=== PATIENT | male | born 1965 | race African-American/Black ===

== ENCOUNTER 2021-06-11 03:40 | Emergency (ER) | payer MEDICAID ==
[~2021-06-11] VITALS: Ht 172.7 cm; Wt 90.0 kg
[2021-06-11 04:43] LABS: BASOPHILS % 0.4 % (0.0-2.0); EOSINOPHILS % 0.3 % (0.0-5.0); HEMATOCRIT. 42.9 % (42.0-52.0); HEMOGLOBIN. 13.7 g/dL (14.0-18.0); LYMPHOCYTES % 13.3 % (20.0-50.0); MEAN CORPUSCULAR HEMOGLOBIN 26.4 pg (28.0-32.0); MEAN CORPUSCULAR VOLUME 82.8 fL (80.0-94.0); MEAN PLATELET VOLUME 8.5 fl (7.4-10.4); MONOCYTES % 7.7 % (2.0-8.0); NEUTROPHILS % 78.3 % (40.0-76.0); PLATELET 224 x1000/uL (130-400); RED BLOOD CELL COUNT 5.18 mill/uL (4.7-6.1); RED CELL DISTRIBUTION WIDTH 18.8 % (11.6-14.6)
[2021-06-11 04:54] LABS: CHLORIDE 111 mEq/L (98-107)
[2021-06-11 04:55] LABS: CLARITY URINE CLEAR (CLEAR); COLOR URINE YELLOW (YELLOW); KETONES URINE TRACE (NEGATIVE); LEUKOCYTE ESTERASE URINE NEGATIVE (NEGATIVE); NITRITE URINE NEGATIVE (NEGATIVE); OCCULT BLOOD URINE NEGATIVE (NEGATIVE); PROTEIN URINE NEGATIVE (NEGATIVE); SPECIFIC GRAVITY URINE 1.021 (1.005-1.030)
[2021-06-11 04:58] LABS: ETHANOL BLOOD 122 mg/dL
[2021-06-11 05:13] LABS: *AMPHETAMINES SCREEN URINE NEGATIVE (NEGATIVE); *BENZODIAZEPINES SCREEN URINE NEGATIVE (NEGATIVE); CANNABINOID URINE SCREEN NEGATIVE (NEGATIVE); METHADONE URINE SCREEN NEGATIVE (NEGATIVE); OPIATES URINE SCREEN NEGATIVE (NEGATIVE); PHENCYCLIDINE URINE SCREEN NEGATIVE (NEGATIVE)
[2021-06-11 05:14] LABS: *BARBITURATES SCREEN URINE NEGATIVE (NEGATIVE); *COCAINE SCREEN URINE PRESUMTIVE POSITIVE (NEGATIVE)
[2021-06-11 07:00] VITALS: BP 124/71
== END 2021-06-11 07:22 | disposition home or self-care (01) ==
LOC: ER 03:40
DX: F10.129 Alcohol abuse with intoxication, unspecified (principal); Y90.6 Blood alcohol level of 120-199 mg/100 ml; R10.9 Unspecified abdominal pain; F14.10 Cocaine abuse, uncomplicated; I10 Essential (primary) hypertension; I25.2 Old myocardial infarction; Z86.73 Personal history of transient ischemic attack (TIA), and cerebral infarction without residual deficits; Z99.3 Dependence on wheelchair
CPT/HCPCS: 36415; 80053; 80305; 80320; 81003; 85025; 99283; G0480

== ENCOUNTER 2021-06-14 10:47 | Emergency (ER) | payer MEDICAID ==
[~2021-06-14] VITALS: Ht 175.3 cm; Wt 91.0 kg
[2021-06-14] MEDS ORDERED: KETOROLAC 60MG/2ML VIAL IM ONE (11:30)
[2021-06-14 12:29] LABS: BASOPHILS % 1.3 % (0.0-2.0); EOSINOPHILS % 0.5 % (0.0-5.0); HEMOGLOBIN. 13.7 g/dL (14.0-18.0); LYMPHOCYTES % 23.1 % (20.0-50.0); MEAN CORPUSCULAR HEMOGLOBIN 26.8 pg (28.0-32.0); MEAN CORPUSCULAR VOLUME 82.2 fL (80.0-94.0); MEAN PLATELET VOLUME 8.5 fl (7.4-10.4); MONOCYTES % 9.8 % (2.0-8.0); NEUTROPHILS % 65.3 % (40.0-76.0); PLATELET 340 x1000/uL (130-400); RED BLOOD CELL COUNT 5.12 mill/uL (4.7-6.1); RED CELL DISTRIBUTION WIDTH 19.6 % (11.6-14.6)
[2021-06-14 12:38] LABS: CHLORIDE 109 mEq/L (98-107)
[2021-06-14] MEDS ORDERED: IBUP-2029 MT (14:54)
[2021-06-14] MEDS ORDERED: BACITRACIN 15GM TUBE TOP ONE (21:00)
[2021-06-14] MEDS ORDERED: POTASSIUM CHLORIDE 20MEQ TABLET SR PO NR (21:15)
[2021-06-15 12:43] VITALS: BP 130/91
== END 2021-06-15 13:26 | disposition short-term general hospital (02) ==
LOC: ER 10:47
DX: G89.29 Other chronic pain (principal); M79.671 Pain in right foot; Z20.822 Contact with and (suspected) exposure to COVID-19; R53.1 Weakness; Z59.0 Homelessness; L97.919 Non-pressure chronic ulcer of unspecified part of right lower leg with unspecified severity; M17.12 Unilateral primary osteoarthritis, left knee; I10 Essential (primary) hypertension; E87.6 Hypokalemia; E11.9 Type 2 diabetes mellitus without complications; I25.2 Old myocardial infarction; Z86.73 Personal history of transient ischemic attack (TIA), and cerebral infarction without residual deficits
CPT/HCPCS: 36415; 80048; 85025; 87426; 96372; 99285; J1885; Z7610